=== PATIENT | male | born 1965 | race American Indian/Alaskan Native ===

== ENCOUNTER 2020-09-21 20:55 | Emergency (ER) | payer OTHER ==
[2020-09-21] MEDS ORDERED: ONDANSETRON 4 MG/2 ML INJ ONE (21:24)
[2020-09-21] MEDS ORDERED: ONDANSETRON 4 MG/2 ML INJ IV ONE (21:30)
[2020-09-21] MEDS ORDERED: HYDROmorphone 1 MG/1 ML INJ IV ONE ×2 (21:33→21:38)
[2020-09-21] MEDS ORDERED: SODIUM CHLORIDE 0.9% 1000 ML 1,000 ML IV ONE (21:33)
--- NOTE | 2020-09-21 21:33 | Emergency Department Report ---
ED N/V/D HPI - General Chief complaint: Nausea/Vomiting/Diarrhea Stated complaint: STOMACH PAIN/VOMITING/SOB PUI?: No Time Seen by Provider: 09/21/20 21:21 Source: patient Mode of arrival: Ambulatory Limitations: No Limitations - History of Present Illness Initial comments: Patient is a 55-year-old male who presents emergency room with complaints of nausea, vomiting, abdominal pain. Patient states is been going on for about 7 days. Patient states he was seen at another hospital 4 days ago and was given a nausea medication but continues to throw up and unable to tolerate food or p.o. intake. Patient states that the pain is worsening. Patient dates his symptoms are worsening. Patient states his pain is a 10 out of 10. Patient states his abdominal pain is a cramping and a sharp pain. Patient denies fever and chills. Patient denies blood in vomitus. Patient denies diarrhea. Patient states he has a history of pancreatitis. Patient states it does not feel like pancreatitis. Patient denies recent travel. Patient denies recent international travel. Patient denies exposure to the novel coronavirus. Patient denies sick contacts. Patient denies fever and chills. Patient denies cough. Patient denies diar steffany. Patient denies coming in contact with anybody with symptoms of the novel coronavirus. MD complaint: nausea, vomiting, abdominal pain -: Sudden, week(s) Description of Vomiting: food contents, watery Associated Abdominal Pain: Yes Location: diffuse Radiation: none Severity: severe Quality: cramping Consistency: constant Improves with: rest Worsens with: eating, vomiting, movement Associated Symptoms: malaise, nausea/vomiting. denies: myalgias, chest pain, cough, diaphoresis, fever/chills, headaches, loss of appetite, rash, dysuria, shortness of breath, syncope, weakness - Related Data Previous Rx's Medication Instructions Recorded Last Taken Type LORazepam [Ativan] 1 mg PO BID #60 tab 05/21/20 Unknown Rx Nicotine [Habitrol] 14 mg TD QDAY #14 patch 05/21/20 Unknown Rx Oxycodone HCl/Acetaminophen 1 each PO Q6HR PRN #24 tablet 05/21/20 Unknown Rx [Percocet 7.5/325 mg] Pantoprazole [Protonix TAB] 40 mg PO QDAY #30 05/21/20 Unknown Rx Pioglitazone [Actos] 15 mg PO QDAY 30 Days #30 05/21/20 Unknown Rx Rosuvastatin Calcium [Crestor] 20 mg PO DAILY 30 Days #30 05/21/20 Unknown Rx Ondansetron [Zofran Odt] 4 mg PO Q6HR PRN #20 tab.rapdis 09/22/20 Unknown Rx Allergies Allergy/AdvReac Type Severity Reaction Status Date / Time No Known Allergies Allergy Unverified 05/16/20 18:48 ED Review of Systems ROS: Stated complaint: STOMACH PAIN/VOMITING/SOB Other details as noted in HPI Constitutional: denies: chills, fever Eyes: denies: eye pain, eye discharge, vision change ENT: denies: ear pain, throat pain Respiratory: denies: cough, shortness of breath, wheezing Cardiovascular: denies: chest pain, palpitations Endocrine: no symptoms reported Gastrointestinal: abdominal pain, nausea, vomiting. denies: diarrhea, constipation, hematemesis, melena, hematochezia Genitourinary: denies: urgency, dysuria Musculoskeletal: denies: back pain, joint swelling, arthralgia Skin: denies: rash, lesions Neurological: denies: headache, weakness, paresthesias Psychiatric: denies: anxiety, depression Hematological/Lymphatic: denies: easy bleeding, easy bruising ED Past Medical Hx - Past Medical History Previous Medical History?: Yes Hx Diabetes: Yes Hx Liver Disease: Yes (hepatitis-treated) Additional medical history: Pancreatitis - Surgical History Past Surgical History?: Yes Hx Cholecystectomy: Yes - Family History Family history: no significant - Social History Smoking Status: Current Every Day Smoker Substance Use Type: None - Medications Home Medications: Home Medications Medication Instructions Recorded Confirmed Last Taken Type LORazepam [Ativan] 1 mg PO BID #60 tab 05/21/20 Unknown Rx Nicotine [Habitrol] 14 mg TD QDAY #14 patch 05/21/20 Unknown Rx Oxycodone HCl/Acetaminophen 1 each PO Q6HR PRN #24 tablet 05/21/20 Unknown Rx [Percocet 7.5/325 mg] Pantoprazole [Protonix TAB] 40 mg PO QDAY #30 05/21/20 Unknown Rx Pioglitazone [Actos] 15 mg PO QDAY 30 Days #30 05/21/20 Unknown Rx Rosuvastatin Calcium [Crestor] 20 mg PO DAILY 30 Days #30 05/21/20 Unknown Rx Ondansetron [Zofran Odt] 4 mg PO Q6HR PRN #20 tab.rapdis 09/22/20 Unknown Rx ED Physical Exam - General Limitations: No Limitations General appearance: alert, in no apparent distress - Head Head exam: Present: atraumatic, normocephalic - Eye Eye exam: Present: normal appearance - ENT ENT exam: Present: mucous membranes moist - Neck Neck exam: Present: normal inspection - Respiratory Respiratory exam: Present: normal lung sounds bilaterally. Absent: respiratory distress - Cardiovascular Cardiovascular Exam: Present: regular rate, normal rhythm. Absent: systolic murmur, diastolic murmur, rubs, gallop - GI/Abdominal GI/Abdominal exam: Present: soft, tenderness, normal bowel sounds - Rectal Rectal exam: Present: deferred - Extremities Exam Extremities exam: Present: normal inspection - Back Exam Back exam: Present: normal inspection - Neurological Exam Neurological exam: Present: alert, oriented X3 - Psychiatric Psychiatric exam: Present: normal affect, normal mood - Skin Skin exam: Present: warm, dry, intact, normal color. Absent: rash ED Course Vital Signs 09/21/20 09/21/20 09/21/20 21:08 22:00 22:30 Temperature 99.5 F Pulse Rate 116 H Respiratory 18 Rate Blood Pressure 174/101 132/70 143/82 O2 Sat by Pulse 100 94 97 Oximetry - Reevaluation(s) Reevaluation #1: Patient states he feels better. Patient states the pain is better. Patient states the nausea has resolved. Patient tolerated p.o. intake. Patient's lungs are clear. Patient is stable for discharge. I discussed all results and clinical findings with patient. I discussed plan of care with patient. Patient agrees with plan of care. Patient is stable for discharge. Patient will be discharged home. Patient given discharge instructions. Patient voiced understanding of discharge instructions. 09/22/20 02:21 ED Medical Decision Making - Lab Data Result diagrams: 09/21/20 21:36 09/21/20 21:36 - Radiology Data Radiology results: report reviewed CT ABDOMEN AND PELVIS WITH CONTRAST INDICATION / CLINICAL INFORMATION: Pt complains of abd pain with nausea and vomiting. TECHNIQUE: Axial CT images were obtained through the abdomen and pelvis after Omnipaque 300, [address] scans at this location are performed using CT dose reduction for ALARA by means of automated exposure control. COMPARISON: None available. FINDINGS: LOWER CHEST: No significant abnormality. LIVER: No significant abnormality. GALLBLADDER: Surgically absent. BILE DUCTS: No significant abnormality. PANCREAS: No significant abnormality. SPLEEN: No significant abnormality. ADRENALS: No significant abnormality. RIGHT KIDNEY / URETER: No significant abnormality. LEFT KIDNEY / URETER: No significant abnormality. STOMACH / SMALL BOWEL: No significant abnormality. COLON: No significant abnormality. APPENDIX: No significant abnormality. PERITONEUM: No free fluid. No free air. No fluid collection. LYMPH NODES: No significant adenopathy. VASCULAR STRUCTURES: No significant abnormality. URINARY BLADDER: Symmetric thickening. REPRODUCTIVE ORGANS: No significant abnormality. ADDITIONAL FINDINGS: None. SKELETAL SYSTEM: No significant abnormality. IMPRESSION: Negative for obstruction or localized inflammation. - Medical Decision Making Patient is a 55-year-old male who presents emergency room with complaints of diarrhea. Nausea and vomiting. Patient denied blood in his vomitus. Patient denies diarrhea. Patient has already been seen at another hospital for the same symptoms and discharged home. Patient states he denies any imaging at the other hospital. Patient had labs done here which were essentially unremarkable. Patient's UA was negative. Patient had a CT scan to rule out acute abdominal process and it was negative for acute finding. Patient medical findings are consistent with gastroenteritis, abdominal pain and nausea vomiting. Patient was given fluids and Zofran in the ER and he responded well. Patient tolerated p.o. intake. Patient's pain was relieved by Dilaudid. Patient stable for discharge. Patient discharged home. Patient given discharge. - Differential Diagnosis Abdominal pain, nausea, vomiting, gastroenteritis, pancreatitis Critical care attestation.: If time is entered above; I have spent that time in minutes in the direct care of this critically ill patient, excluding procedure time. ED Disposition Clinical Impression: Gastroenteritis Nausea & vomiting Qualifiers: Vomiting type: unspecified Vomiting Intractability: non-intractable Qualified Code(s): R11.2 - Nausea with vomiting, unspecified Abdominal pain Qualifiers: Abdominal location: generalized Qualified Code(s): R10.84 - Generalized abdominal pain Disposition: TO HOME OR SELFCARE Is pt being admited?: No Does the pt Need Aspirin: No Condition: Stable Instructions: Viral Gastroenteritis, Adult, Nausea and Vomiting, Adult, Abdominal Pain, Adult Additional Instructions: Patient to follow-up with primary care in 2 to 3 days. Patient to eat a brat diet. Patient to rest. Patient to increase water. Patient to take Tylenol or ibuprofen as needed for pain. Patient to take meds as directed. Patient to return to the ER if condition worsens, changes or new symptoms arise. Prescriptions: Ondansetron [Zofran Odt] 4 mg PO Q6HR PRN #20 tab.rapdis PRN Reason: Nausea And Vomiting Referrals: PRIMARY CARE, [Primary Care Provider] - 2-3 Days Time of Disposition: 02:21
[2020-09-21 21:47] LABS: Basophils % (Auto) 0.4 % (0.0-1.8); Eosinophils % (Auto) 0.1 % (0.0-4.3); Hematocrit 39.2 % (35.5-45.6); Hemoglobin 13.4 gm/dl (11.8-15.2); Lymphocytes # (Auto) 1.8 K/mm3 (1.2-5.4); Lymphocytes % (Auto) 25.1 % (13.4-35.0); Mean Corpuscular HGB Conc 34 % (32-34); Mean Corpuscular Volume 83 fl (84-94); Monocytes # (Auto) 0.8 K/mm3 (0.0-0.8); Monocytes % (Auto) 10.9 % (0.0-7.3); Platelet Count 250 K/mm3 (140-440); Red Blood Count 4.69 M/mm3 (3.65-5.03); Red Cell Distribution Width 13.5 % (13.2-15.2)
[2020-09-21 22:09] LABS: Alanine Aminotransferase 24 units/L (7-56); Albumin 3.9 g/dL (3.9-5); BUN/Creatinine Ratio 11; Blood Urea Nitrogen 9 mg/dL (9-20); Calcium 9.1 mg/dL (8.4-10.2); Hemolysis Index 25
--- NOTE | 2020-09-21 23:32 | Cat Scan Report ---
CT ABDOMEN AND PELVIS WITH CONTRAST INDICATION / CLINICAL INFORMATION: Pt complains of abd pain with nausea and vomiting. TECHNIQUE: Axial CT images were obtained through the abdomen and pelvis after Omnipaque 300, 100 cc I V contrast. All CT scans at this location are performed using CT dose reduction for ALARA by means o f automated exposure control. COMPARISON: None available. FINDINGS: LOWER CHEST: No significant abnormality. LIVER: No significant abnormality. GALLBLADDER: Surgically absent. BILE DUCTS: No significant abnormality. PANCREAS: No significant abnormality. SPLEEN: No significant abnormality. ADRENALS: No significant abnormality. RIGHT KIDNEY / URETER: No significant abnormality. LEFT KIDNEY / URETER: No significant abnormality. STOMACH / SMALL BOWEL: No significant abnormality. COLON: No significant abnormality. APPENDIX: No significant abnormality. PERITONEUM: No free fluid. No free air. No fluid collection. LYMPH NODES: No significant adenopathy. VASCULAR STRUCTURES: No significant abnormality. URINARY BLADDER: Symmetric thickening. REPRODUCTIVE ORGANS: No significant abnormality. ADDITIONAL FINDINGS: None. SKELETAL SYSTEM: No significant abnormality. IMPRESSION: Negative for obstruction or localized inflammation. Signer Name: Waqar Garcia MD Signed: 09/21/2020 11:28 PM Workstation Name: [id number]
[2020-09-22 01:39] LABS: Bacteria,Urine 1+ /HPF (Negative); Bilirubin,Urine NEG (Negative); Blood,Urine NEG (Negative); Color,Urine Yellow (Yellow); Hyaline Casts,Urine 16 /LPF; Mucus,Urine 1+ /HPF; RBC,Urine < 1.0 /HPF (0.0-6.0); Urobilinogen,Urine < 2.0 mg/dL (<2.0)
[2020-09-22 02:57] VITALS: BP 139/94
--- NOTE | 2020-09-26 17:25 | Electrocardiograph Report ---
[facility] Test Date: 2020-09-21 Test Time: 20:58:15 Pat Name: ANMOL WU Department: Room: Gender: M Editor Index: SB : 1965 Requested By: CHARLES CORTES III Order Number: [id number] Reading MD: Victoriano Domínguez Measurements Intervals [place] Rate: 96 P: 71 MT: 216 QRS: -4 QRSD: 91 T: -11 QT: 358 QTc: 453 Interpretive Statements Sinus rhythm Prolonged MT interval No previous ECG available for comparison Electronically Signed On 09-26-2020 17:24:41 EDT by Victoriano Domínguez
== END 2020-09-22 02:58 | disposition home or self-care (01) ==
LOC: ED 20:55
DX: K52.9 Noninfective gastroenteritis and colitis, unspecified (principal); R10.84 Generalized abdominal pain; R11.2 Nausea with vomiting, unspecified; E11.9 Type 2 diabetes mellitus without complications; F17.200 Nicotine dependence, unspecified, uncomplicated; Z90.49 Acquired absence of other specified parts of digestive tract; Z79.899 Other long term (current) drug therapy
CPT/HCPCS: 36415; 74177; 80053; 81001; 83690; 85025; 93005; 96361; 96374; 96375; 96376; 99284; J1170; J2405; J7030; Q9967